=== PATIENT | male | born 1975 | race Caucasian/White ===

== ENCOUNTER → 2021-01-05 | Outpatient (CLI) | payer BC ==
[~2021-01-05] MED LIST: ATORVASTATIN; CIPRO 500MG TA500 MG PO; CLARITIN D TAB1 TAB PO; FLOMAX 0.40.4 MG/CAP PO; GLUCOSAMINE & C1 CA1 PO; MASON NATURAL1000 MG PO; MULTIPLE VITAMI1 CAP PO; NATURE'S BLE1000 MCG PO; PERCOCET 325 MG1 TA2 PO; PRILOSEC 20MG20 MG PO
== END ==
LOC: COL.RAD 13:32
DX: N43.41 Spermatocele of epididymis, single (principal)